=== PATIENT | male | born 1960 | race Caucasian/White ===

== ENCOUNTER 2016-11-08 16:23 | Emergency (ER) | payer OTHER | END 2016-11-08 20:52 | disposition home or self-care (01) | LOC: ER1 16:23 | DX: S09.90XA Unspecified injury of head, initial encounter (principal); S32.039A Unspecified fracture of third lumbar vertebra, initial encounter for closed fracture; S32.049A Unspecified fracture of fourth lumbar vertebra, initial encounter for closed fracture; S16.1XXA Strain of muscle, fascia and tendon at neck level, initial encounter; J44.9 Chronic obstructive pulmonary disease, unspecified; I10 Essential (primary) hypertension; Z79.899 Other long term (current) drug therapy; W01.0XXA Fall on same level from slipping, tripping and stumbling without subsequent striking against object, initial encounter; Y92.89 Other specified places as the place of occurrence of the external cause | CPT/HCPCS: 70450; 72125; 72131; 99284; J1885 ==

== ENCOUNTER 2021-05-19 20:54 | Emergency (ER) | payer OTHER ==
[2021-05-19 21:59] LABS: HEMOGLOBIN 13.9 gm/dl (14.0-17.5); RED BLOOD COUNT 4.33 M/UL (4.20-5.50); WHITE BLOOD COUNT 4.4 K/UL (4.5-11.0)
[2021-05-19 22:21] LABS: BUN/CREATININE RATIO 15 (0-10)
== END 2021-05-19 23:50 ==
LOC: ER1 20:54
PROVIDERS: Emergency Medicine
DX: S00.03XA Contusion of scalp, initial encounter (principal); S13.4XXA Sprain of ligaments of cervical spine, initial encounter; S23.3XXA Sprain of ligaments of thoracic spine, initial encounter; S33.5XXA Sprain of ligaments of lumbar spine, initial encounter; B02.9 Zoster without complications; W01.0XXA Fall on same level from slipping, tripping and stumbling without subsequent striking against object, initial encounter
CPT/HCPCS: 70450; 71045; 72125; 72128; 72131; 80053; 85025; 99284; Q9967

== ENCOUNTER 2021-07-22 18:59 | Emergency (ER) | payer OTHER ==
[2021-07-22 20:30] LABS: HEMOGLOBIN 15.4 gm/dl (14.0-17.5); RED BLOOD COUNT 4.96 M/UL (4.20-5.50); WHITE BLOOD COUNT 5.5 K/UL (4.5-11.0)
[2021-07-22 21:01] LABS: BUN/CREATININE RATIO 23 (0-10)
[2021-07-22] MEDS ORDERED: ONDANSETRON ODT4 MG SL (22:37)
[2021-07-22] MEDS ORDERED: TORADOL 10 MG T10 MG PO (22:37)
== END 2021-07-22 23:51 | disposition home or self-care (01) ==
LOC: ER1 18:59
PROVIDERS: Physician Assistant
DX: K74.60 Unspecified cirrhosis of liver (principal); K80.20 Calculus of gallbladder without cholecystitis without obstruction; K21.9 Gastro-esophageal reflux disease without esophagitis; I10 Essential (primary) hypertension; F17.210 Nicotine dependence, cigarettes, uncomplicated
CPT/HCPCS: 80053; 81001; 82550; 82553; 83605; 83690; 83874; 84484; 85025; 87086; 93005; 96374; 99284; J1885; Q9967

== ENCOUNTER 2021-10-25 10:59 | Emergency (ER) | payer OTHER ==
[~2021-10-25 10:59] MED LIST: ONDANSETRON ODT4 MG SL; TORADOL 10 MG T10 MG PO
[2021-10-25 12:35] LABS: HEMOGLOBIN 12.7 gm/dl (14.0-17.5); RED BLOOD COUNT 3.96 M/UL (4.20-5.50); WHITE BLOOD COUNT 4.3 K/UL (4.5-11.0)
== END 2021-10-25 20:45 | disposition home or self-care (01) ==
LOC: ER1 10:59
PROVIDERS: Physician Assistant
DX: K80.20 Calculus of gallbladder without cholecystitis without obstruction (principal)
CPT/HCPCS: 71045; 80053; 82270; 83690; 85025; 93005; 99284; J7030; Q9967